=== PATIENT | female | born 1935 | race Caucasian/White ===

== ENCOUNTER 2017-08-03 09:04 | Emergency (ER) | payer OTHER ==
[2017-08-03 09:52] LABS: Absolute Lymphocytes (CBC) 1.5 K/uL (0.7-4.9); Absolute Monocytes 0.8 K/uL (0.1-1.3); Absolute Neutrophil 5.5 K/uL (1.8-8.0); Basophils % 0.7 % (0-1.3); Eosinophils % 1.6 % (0-4.4); Hematocrit 30.9 % (36.0-45.0); Lymphocytes % 18.7 % (15.3-44.8); MPV 9.2 fL (7.6-11.3); Monocytes % 10.5 % (3.3-12.3); RBC Red Blood Cell Count 3.68 M/uL (3.86-4.86)
[2017-08-03 10:42] LABS: Urine Blood 2+ (NEG); Urine Glucose NEGATIVE (NEG); Urine Protein NEGATIVE (NEG)
--- NOTE | 2017-08-03 11:06 | RAD REPORT ---
EXAM DESCRIPTION: CT - Head C Spine Cap Rafi Abad - 08/03/2017 10:49 am CLINICAL HISTORY: Fall, head, neck, chest and abdomen pain COMPARISON: CT imaging December 2015 TECHNIQUE: Axial [address] head images were obtained. Axial [address] cervical spine images were obtaine d with sagittal and coronal reconstruction images reviewed. During dynamic enhancement of 100mL non-i onic contrast, axial 5 mm images of the chest, abdomen and pelvis were obtained. All CT scans are performed using dose optimization technique as appropriate and may include automated exposure control or mA/KV adjustment according to patient size. FINDINGS: No intracranial hemorrhage, mass or edema. No midline shift or abnormal fluid collection. Advanced atrophy and chronic ischemic changes are present. Ventricular size is in proportion. Mastoid air cells and paranasal sinuses are clear. No skull fracture. CT cervical spine imaging shows normal height. No subluxation abnormality. There is right lateral til t of the cervical spine from positioning artifact. C6-7 disc space narrowing and endplate spurring ch anges are present. Moderately prominent facet joint degenerative changes are scattered in the cervica l spine. No significant encroachment into the central canal. Foraminal encroachment changes are relat ively mild. No fracture or acute cervical finding. No paraspinal mass or hematoma seen. Central canal detail is inherently limited. Concerns for traumatic disc herniation or traumatic cord injury can be further addressed with MR imaging. CT chest shows no pneumothorax, pulmonary contusion or pleural fluid collection. No mediastinal hemat grecia and the aorta and pulmonary arteries are unremarkable. No chest will mass or abnormal axillary fi nding. No displaced rib fracture or other significant bony finding. CT abdomen and pelvis show no injury to solid abdominal viscera. Gallstones are present. No biliary t ree dilatation. No acute gallbladder or biliary tree finding. Large amount of stool dilates the rectu m. No bowel injury or significant finding. No free air, free fluid or abnormal stranding. No urinary bladder abnormality. Disc and bony degenerative changes are present throughout the thoracic and lumbar spines. L5 pars def ects are present with grade 1 spondylolisthesis. No fracture or dislocation of either proximal femur. Advanced degenerative change at the L5-S1 disc space. SI joint degenerative changes are present. Que stionable left sacral ala fracture is present. There is a nondisplaced fracture of the left ischium. Additional fracture is present at the junction of superior and inferior pubic rami with the pubic sym physis. Along the superior margin of this fracture there is a 5 x 3 centimeter hematoma that has mild mass effect on the urinary bladder. IMPRESSION: Advanced atrophy and chronic ischemic change with no acute intracranial finding. No pneumothorax, pulmonary contusion or emergent CT chest finding. Cervical spine degenerative change with no acute cervical spine finding identified. Nondisplaced fracture at the left pubic symphysis and left ischium. There is questionable left sacral ala fracture. A 5 x 3 cm hematoma is present along the superior margin of the pubic symphysis fractu re. This has mild mass effect on the urinary bladder. No acute injury to the solid abdominal viscera or bowel. No free fluid or other emergent abdominal or pelvic finding.
--- NOTE | 2017-08-03 12:10 | EDPHYS ---
Physician Documentation [facility] Name: Yaneth Crouch Age: 81 yrs Sex: Female : 1935 Arrival Date: 08/03/2017 Time: 09:05 Bed 3 Private MD: Jose Reyna R ED Physician Gus Langford HPI: 08/03 18:25 This 81 yrs old Female presents to ER via EMS with complaints of Fall Injury kdr - fell from bed. 18:25 Details of fall: The patient fell from a height, off furniture, approximately 2 feet. kdr Onset: The symptoms/episode began/occurred suddenly, just prior to arrival. Associated injuries: The patient sustained Left hip/flank. Severity of symptoms: At their worst the symptoms were mild, moderate, in the emergency department the symptoms are unchanged. The patient has not experienced similar symptoms in the past. The patient has not recently seen a physician. The patient reportedly fell from bed, sliding out on her back and left side. It was unwitnessed. Historical: - Allergies: 09:35 NKA; tw2 - Home Meds: 09:35 Evista 60 mg Oral tab 1 tab once daily [Active]; galantamine 8 mg Oral C24P 2 caps once tw2 daily [Active]; Levothroid 75 mcg Oral tab 1 tab once daily [Active]; simvastatin 40 mg Oral tab 1 tab once daily [Active]; Risperdal 1 mg Oral tab 1 tab once daily [Active]; propranolol 20 mg Oral tab 1 tab 2 times per day [Active]; Namenda 10 mg Oral tab 1 tab 2 times per day [Active]; mupirocin 2 % Topical oint daily [Active]; metformin 500 mg Oral tab 1 tab 2 times per day [Active]; lorazepam 0.5 mg Oral tab 1 tab daily [Active]; lorazepam 0.5 mg Oral tab 1 tab Q4 hours PRN [Active]; - PMHx: 09:35 CHF; Dementia; Hyperlipidemia; Hypertension; Hypothyroidism; tw2 - PSHx: 09:35 Unable to obtain; tw2 - Immunization history:: Adult Immunizations up to date. - Social history:: Smoking status: unknown. - Immunization history: Last tetanus immunization: - up to date. - Ebola Screening: : Patient negative for fever greater than or equal to 101.5 degrees Fahrenheit, and additional compatible Ebola Virus Disease symptoms. ROS: 18:25 Constitutional: The patient has dementia and is unable to give a consistent or reliable kdr history Eyes: Negative for injury, pain, redness, and discharge, Neck: Negative for injury, pain, and swelling, Cardiovascular: Negative for chest pain, palpitations, and edema, Respiratory: Negative for shortness of breath, cough, wheezing, and pleuritic chest pain, Abdomen/GI: Negative for abdominal pain, nausea, vomiting, diarrhea, and constipation, : Negative for injury, bleeding, discharge, and swelling, MS/Extremity: Negative for injury and deformity, Skin: Negative for injury, rash, and discoloration, Neuro: Negative for headache, weakness, numbness, tingling, and seizure activity. Exam: 18:25 Constitutional: This is a well developed, well nourished patient who is awake, alert, kdr and in very mild distress. Head/Face: Normocephalic, atraumatic. Eyes: Pupils equal round and reactive to light, extra-ocular motions intact. Lids and lashes normal. Conjunctiva and sclera are non-icteric and not injected. Cornea within normal limits. Periorbital areas with no swelling, redness, or edema. Neck: Trachea midline, no thyromegaly or masses palpated, and no cervical lymphadenopathy. Supple, full range of motion without nuchal rigidity, or vertebral point tenderness. No Meningismus. Chest/axilla: Normal chest wall appearance and motion. Nontender with no deformity. No lesions are appreciated. Cardiovascular: Regular rate and rhythm with a normal S1 and S2. No gallops, murmurs, or rubs. Normal PMI, no JVD. No pulse deficits. Respiratory: Lungs have equal breath sounds bilaterally, clear to auscultation and percussion. No rales, rhonchi or wheezes noted. No increased work of breathing, no retractions or nasal flaring. Abdomen/GI: Soft, non-tender, with normal bowel sounds. No distension or tympany. No guarding or rebound. No evidence of tenderness throughout. Skin: Warm, dry with normal turgor. Normal color with no rashes, no lesions, and no evidence of cellulitis. MS/ Extremity: Pulses equal, no cyanosis. Neurovascular intact. Full, normal range of motion. Neuro: Awake and alert, GCS 15, oriented to person, place, time, and situation. Cranial nerves II-XII grossly intact. Motor strength 5/5 in all extremities. Sensory grossly intact. Cerebellar exam normal. Normal gait. Psych: Awake, alert, with orientation to person, place and time. Behavior, mood, and affect are within normal limits. 18:25 Cardiovascular: Left flank pain. 18:25 Abdomen/GI: Left buttock pain. Vital Signs: 09:08 Pulse 83; Resp 16; Temp 97.8(TE); Pulse Ox 100% on R/A; Weight 49.9 kg (R); tw2 09:30 BP 121 / 71; tw2 10:09 BP 118 / 87; Pulse 80; Resp 19; Pulse Ox 99% on R/A; tw2 11:07 BP 116 / 95; Pulse 77; Resp 17; Pulse Ox 100% on R/A; tw2 12:25 BP 124 / 57; Pulse 83; Resp 17; Pulse Ox 100% on R/A; tw2 13:53 BP 129 / 52; Pulse 75; Resp 17; Pulse Ox 99% on R/A; tw2 [place] Coma Score: 09:33 Eye Response: spontaneous(4). Verbal Response: confused(4). Motor Response: obeys tw2 commands(6). Total: 14. Trauma Score (Adult): 09:33 Eye Response: spontaneous(1); Verbal Response: confused(1); Motor Response: obeys tw2 commands(2); Systolic BP: > 89 mm Hg(4); Respiratory Rate: 10 to 29 per min(4); Allison Score: 14; Trauma Score: 12 MDM: 12:09 Patient medically screened. kdr 12:09 Physician consultation: Jamie Amezcua MD was called at 11:50, regarding patient's kdr condition, discharges patient from the emergency department. Physician consultation: Shen Livingston MD was called at 12:00, regarding consult, patient's condition, after a discussion of the case, a recommendation for transfer for higher level of care is made. 18:25 Data reviewed: vital signs, nurses notes, lab test result(s), radiologic studies. kdr Counseling: I had a detailed discussion with the patient and/or guardian regarding: the historical points, exam findings, and any diagnostic results supporting the discharge/admit diagnosis, lab results, radiology results, the need to transfer to another facility. 08/03 09:13 Order name: Basic Metabolic Panel; Complete Time: 10:51 [facility] 08/03 09:13 Order name: CBC with Diff; Complete Time: 10:51 [facility] 08/03 09:13 Order name: CT Traumagram (Head C Spine CAP W Con); Complete Time: 11:42 [facility] 08/03 09:13 Order name: Creatinine for Radiology; Complete Time: 10:51 [facility] 08/03 09:13 Order name: Type And Screen [facility] 08/03 10:32 Order name: Urine Dipstick--Ancillary (enter results); Complete Time: 10:51 08/03 09:13 Order name: Labs collected and sent; Complete Time: 09:30 [facility] 08/03 09:13 Order name: Urine Dipstick-Ancillary (obtain specimen); Complete Time: 10:32 [facility] 08/03 10:09 Order name: Labs - recollect needed; Complete Time: 10:23 08/03 13:08 Order name: EKG Electrocardiogram EDMS Administered Medications: No medications were administered Disposition: 08/03/17 12:09 Transfer ordered to [facility]. Diagnosis is Fall from bed, Pelvic fractures with associated hematoma. - Reason for transfer: Higher level of care. - Accepting physician is Dr. Austin. - Condition is Fair. - Problem is new. - Symptoms are unchanged. Signatures: Dispatcher [employer] EDMS Temitope Galvez Kevin, MD MD kdr Callie Motta RN RN tw2 Corrections: (The following items were deleted from the chart) 13:54 12:09 08/03/2017 12:09 Transfer ordered to [facility]. tw2 Diagnosis is Fall from bed, Pelvic fractures with associated hematoma. Reason for transfer: Higher level of care. Accepting physician is Dr. Austin. Condition is Fair. Problem is new. Symptoms are unchanged. kdr
--- NOTE | 2017-08-03 12:10 | ER ---
Nurse's Notes [facility] Name: Yaneth Crouch Age: 81 yrs Sex: Female : 1935 Arrival Date: 08/03/2017 Time: 09:05 Bed 3 Private MD: Jose Reyna R Diagnosis: Fall from bed, Pelvic fractures with associated hematoma Presentation: 08/03 09:06 Presenting complaint: EMS states: unwitnessted fall from [facility], unknown if tw2 LOC, old skin tear on lower LEFT FA, new skin tear noted to upper LEFT FA, vs stable. Transition of care: patient was not received from another setting of care. Onset of symptoms was August 03, 2017. Risk Assessment: Do you want to hurt yourself or someone else? Patient reports no desire to harm self or others. Initial Sepsis Screen: Does the patient meet any 2 criteria? No. Patient's initial sepsis screen is negative. Does the patient have a suspected source of infection? No. Patient's initial sepsis screen is negative. Care prior to arrival: None. 09:06 Method Of Arrival: EMS: [facility] tw2 09:06 Acuity: GERARD 3 tw2 09:37 Mechanism of Injury: Fall unwitnessed from [place] [facility]. Trauma event tw2 details: Injury occurred in the [facility]. Trauma Activation: Not Applicable Physician: ED Physician; Name: ; Notified At: ; Arrived At: Physician: General Surgeon; Name: ; Notified At: ; Arrived At: Physician: Radiology; Name: ; Notified At: ; Arrived At: Physician: Respiratory; Name: ; Notified At: ; Arrived At: Physician: Lab; Name: ; Notified At: ; Arrived At: Historical: - Allergies: 09:35 NKA; tw2 - Home Meds: 09:35 Evista 60 mg Oral tab 1 tab once daily [Active]; galantamine 8 mg Oral C24P 2 caps once tw2 daily [Active]; Levothroid 75 mcg Oral tab 1 tab once daily [Active]; simvastatin 40 mg Oral tab 1 tab once daily [Active]; Risperdal 1 mg Oral tab 1 tab once daily [Active]; propranolol 20 mg Oral tab 1 tab 2 times per day [Active]; Namenda 10 mg Oral tab 1 tab 2 times per day [Active]; mupirocin 2 % Topical oint daily [Active]; metformin 500 mg Oral tab 1 tab 2 times per day [Active]; lorazepam 0.5 mg Oral tab 1 tab daily [Active]; lorazepam 0.5 mg Oral tab 1 tab Q4 hours PRN [Active]; - PMHx: 09:35 CHF; Dementia; Hyperlipidemia; Hypertension; Hypothyroidism; tw2 - PSHx: 09:35 Unable to obtain; tw2 - Immunization history:: Adult Immunizations up to date. - Social history:: Smoking status: unknown. - Immunization history: Last tetanus immunization: - up to date. - Ebola Screening: : Patient negative for fever greater than or equal to 101.5 degrees Fahrenheit, and additional compatible Ebola Virus Disease symptoms. Screenin:34 Abuse screen: Denies threats or abuse. Nutritional screening: No deficits noted. tw2 Tuberculosis screening: No symptoms or risk factors identified. Fall Risk Fall in past 12 months (25 points). Secondary diagnosis (15 points) dementia. Primary Survey: 09:36 A: Airway: patent. Breathing/Chest: Respiratory pattern: regular, Respiratory effort: tw2 spontaneous, unlabored, Breath sounds: clear, bilaterally. Chest inspection: symmetrical rise and fall of the chest. Circulation: Heart tones present. Skin temperature: warm, dry. Disability Alert. 10:09 Reassessment Airway Airway Patent Other room air Breathing/Chest Respiratory pattern tw2 Regular Respiratory effort Spontaneous Unlabored Breath sounds Clear Chest inspection Symmetrical Circulation Heart tones Present Temperature Warm Disability Alert. Secondary Survey: 09:40 HEENT: No deficits noted. Gastrointestinal: Abdomen is soft, flat, Bowel sounds present tw2 in all quadrants. : No signs and/or symptoms were reported regarding the genitourinary system. Musculoskeletal: Range of motion: intact in all extremities. Assessment: 09:30 General: Appears in no apparent distress. slender, Behavior is fussy, uncooperative, pt tw2 states "get away from me, i will kick you in the ass you stupid idiot", "stop jerking me around, you dont know what the hell your doing", when we were trying to get an EKG of her, . Pain: Complains of pain in back. Neuro: Level of Consciousness is awake, alert, Oriented to person. Cardiovascular: Heart tones S1 S2 Capillary refill < 3 seconds Patient's skin is warm and dry. Respiratory: Airway is patent Respiratory effort is even, unlabored, Respiratory pattern is regular, symmetrical, Breath sounds are clear bilaterally. GI: No signs and/or symptoms were reported involving the gastrointestinal system. Abdomen is flat, Bowel sounds present X 4 quads. : No signs and/or symptoms were reported regarding the genitourinary system. Derm: Wound noted left arm Wound is skin tear noted to left lower FA, wrapped with kerlix, small skin tear noted to upper left FA Decubitus located on sacrum approximately 1.5 cm to 2.5 cm is stage I. Musculoskeletal: Range of motion: intact in all extremities. 10:09 Reassessment: Patient appears in no apparent distress at this time. No changes from tw2 previously documented assessment. Patient and/or family updated on plan of care and expected duration. Pain level reassessed. pts spouse is at bedside, pt talking quietly with spouse at this time. 11:07 Reassessment: Patient appears in no apparent distress at this time. No changes from tw2 previously documented assessment. Patient and/or family updated on plan of care and expected duration. Pain level reassessed. 11:54 Reassessment: provider at bedside at this time speaking to spouse. tw2 11:56 Reassessment: Patient appears in no apparent distress at this time. No changes from tw2 previously documented assessment. Patient and/or family updated on plan of care and expected duration. Pain level reassessed. 12:26 Reassessment: Patient appears in no apparent distress at this time. No changes from tw2 previously documented assessment. Patient and/or family updated on plan of care and expected duration. Pain level reassessed. 13:53 Reassessment: Patient appears in no apparent distress at this time. No changes from tw2 previously documented assessment. Patient and/or family updated on plan of care and expected duration. Pain level reassessed. Vital Signs: 09:08 Pulse 83; Resp 16; Temp 97.8(TE); Pulse Ox 100% on R/A; Weight 49.9 kg (R); tw2 09:30 BP 121 / 71; tw2 10:09 BP 118 / 87; Pulse 80; Resp 19; Pulse Ox 99% on R/A; tw2 11:07 BP 116 / 95; Pulse 77; Resp 17; Pulse Ox 100% on R/A; tw2 12:25 BP 124 / 57; Pulse 83; Resp 17; Pulse Ox 100% on R/A; tw2 13:53 BP 129 / 52; Pulse 75; Resp 17; Pulse Ox 99% on R/A; tw2 [place] Coma Score: 09:33 Eye Response: spontaneous(4). Verbal Response: confused(4). Motor Response: obeys tw2 commands(6). Total: 14. Trauma Score (Adult): 09:33 Eye Response: spontaneous(1); Verbal Response: confused(1); Motor Response: obeys tw2 commands(2); Systolic BP: > 89 mm Hg(4); Respiratory Rate: 10 to 29 per min(4); Allison Score: 14; Trauma Score: 12 ED Course: 09:05 Patient arrived in ED. tw2 09:08 Triage completed. tw2 09:08 Arm band placed on. tw2 09:13 Gus Langford MD is Attending Physician. kdr 09:20 Side rails up X2. youth nutritional monitor on. Pulse ox on. NIBP on. Warm blanket given. tw2 09:23 EKG done, by certified appliance service technician. sm3 09:37 Patient maintains SpO2 saturation greater than 95% on room air. Thermoregulation: warm tw2 blanket given to patient. 09:41 Callie Motta, FERNY is Primary Nurse. tw2 09:44 Inserted saline lock: 20 gauge in right antecubital area, using aseptic technique. rv 10:11 Jose Reyna MD is Private Physician. sb2 10:47 CT completed. Patient tolerated procedure well. Patient moved to CT via stretcher. sj Patient moved back from CT. 10:49 CT Traumagram (Head C Spine CAP W Con) In Process Unspecified. EDMS 13:53 No provider procedures requiring assistance completed. Patient transferred, IV remains tw2 in place. Administered Medications: No medications were administered Intake: 09:33 PO: 0ml; Total: 0ml. tw2 Outcome: 11:56 Condition: stable tw2 11:56 Patient's length of stay in the Emergency Department was greater than 2 hours. d/t imaging results possible transferPatient's length of stay extended due to 12:09 ER care complete, transfer ordered by . kdr 13:54 Transferred by ground EMS to [facility]. tw2 13:54 Instructed on the need for transfer. 13:54 Patient left the ED. tw2 Signatures: Dispatcher [employer] EDMS Gus Langford MD MD kdr Jones, Susan sj Wise, Tara, RN RN tw2 Malinda Ramirez 2 Tomasa Mendoza sm3 Huan Lucero RN RN rv Corrections: (The following items were deleted from the chart) 09:38 09:37 Trauma Activation: Alert tw2 11:36 11:07 BP 137 / 78; Pulse 76bpm; Resp 18bpm; rv ag
--- NOTE | 2017-08-04 06:59 | EKG ---
Test Date: 2017-08-03 Test Time: 09:23:48 [employer] Worker Helper: SALMA MEASUREMENT RESULTS: Intervals: Rate: 77 AL: 126 QRSD: 74 QT: 400 QTc: 452 Dixon: P: 43 AL: 126 QRS: 65 T: 84 INTERPRETIVE STATEMENTS: Normal sinus rhythm Low voltage QRS Nonspecific ST and T wave abnormality Abnormal ECG Compared to ECG 02/05/2016 09:22:55 Possible ischemia no longer present Prolonged QT interval no longer present ST (T wave) deviation still present Electronically Signed On 08-04-17 06:55:55 CDT by Alin Dsouza
== END 2017-08-03 13:54 | disposition short-term general hospital (02) ==
LOC: ER 09:04
DX: S32.9XXA Fracture of unspecified parts of lumbosacral spine and pelvis, initial encounter for closed fracture (principal); W06.XXXA Fall from bed, initial encounter; Y93.9 Activity, unspecified; Y92.122 Bedroom in nursing home as the place of occurrence of the external cause; I10 Essential (primary) hypertension; E78.5 Hyperlipidemia, unspecified; E03.9 Hypothyroidism, unspecified; F03.90 Unspecified dementia, unspecified severity, without behavioral disturbance, psychotic disturbance, mood disturbance, and anxiety
CPT/HCPCS: 36415; 70450; 71260; 72125; 74177; 80048; 81003; 85025; 86850; 86900; 86901; 93005; 99285; Q9967